=== PATIENT | male | born 1965 | race Caucasian/White ===

== ENCOUNTER 2024-12-23 08:11 | Outpatient (REF) | payer OTHER, SELFPAY ==
--- NOTE | 2024-12-23 08:24 | EEG_ITS ---
This is a 16-channel EEG with an EKG lead. The patient is reported awake during the tracing. Background EEG rhythm is mostly low amplitude fast with some lead and muscle artifacts. Photic stimulation does not produce any significant abnormality. Hyperventilation is unremarkable. No sharp wave spikes or paroxysmal tendency noted. Cardiac lead does not reveal any significant abnormality. IMPRESSION: Unremarkable EEG. MD REGGIE Sanchez/JULIAN / [id number]
--- OUTSIDE RECORDS SUMMARY | 2024-12-23 08:29 | XMS_ITS | Continuity of Care Document ---
Author Organization [facility] Address [address] [place] [address]- Care Team Providers Care Theology Teacher Name Role Phone Jaclyn SHERMAN, Nikko Alegria Primary Care Physician [place] [facility] Date(s): 11/26/24 - 12/03/24 [facility] Adult [address] [place] [address]- Encounter Diagnosis AMS (altered mental status)(Discharge Diagnosis) - 11/26/24 Hypertriglyceridemia(Discharge Diagnosis) - 11/26/24 Bradycardia(Discharge Diagnosis) - 11/26/24 Attending Physician: Not on Staff, Attending MD Encounter Type: Office Visit Allergies, Adverse Reactions, Alerts Substance Criticality Severity Reaction Reaction Severity Status Pollen Active Immunizations Given and Recorded Vaccine Date Status Refusal Reason tetanus/diphtheria/pertussis, acel(Tdap) 06/15/21 Recorded SARS-CoV-2 (COVID-19) Ad26 vaccine 05/30/21 Record ed Medications rosuvastatin 10 mg oral tablet 1 tablet = 10 mg, By Mouth, Daily, # 90 tablet, 1 Refills, Maintenance, 11/26/24 4:34:00 PM EST, Tablet, [id number], Partial fill upon patient request if the prescription is for a schedule II opioid drug., 175, cm, 11/26/24 12:53:00 EST, Height Start Date: 11/26/24 Status: Ordered Quantity: 90.0 Unit: tablet Repeat number: 2 sildenafil 100 mg oral tablet 1 tablet, By Mouth, Daily, 1 HOUR BEFORE SEXUAL ACTIVITY, # 30 tablet, 5 Refills, Maintenance, 05/26/24 9:01:00 PM EDT, [facility] 175, cm, 12/25/23 8:40:00 EDT, Height Start Date: 05/26/24 Status: Ordered Quantity: 30.0 Unit: tablet Repeat number: 6 Problem List Condition Confirmation Course Effective Dates Status Health Status Informant Erectile dysfunction Confirmed Active Family history of prostate cancer in father Confirmed Active Hx of tinea cruris Confirmed Active S/P right knee arthroscopy Confirmed Active History of colon polyps 1 Confirmed Active Hypertriglyceridemia Confirmed Active Lumbar radiculopathy, chronic Confirmed Active Obese class I Confirmed Active Biceps tendon rupture Confirmed Active 1Colonoscopy 2023 positive polyps, repeat 2028. Diagnosis Diagnosis Type Effective Dates Health Status Clinical Service Informant AMS (altered mental status) Discharge Diagnosis 11/26/24 Hypertriglyceridemia Discharge Diagnosis 11/26/24 Bradycardia Discharge Diagnosis 11/26/24 Vital Signs Most recent to oldest [Reference Range]: 1 2 Height 175 cm (11/29/24 3:12 PM) 175 cm (11/26/24 12:53 PM) Weight 92.0 kg (11/29/24 3:12 PM) 92.0 kg (11/26/24 12:53 PM) Oxygen Saturation [94-100 %] 98 % (11/26/24 12:53 PM) Pulse Rate [55-90 bpm] 53 bpm *L* (11/26/24 12:53 PM) Body Mass Index [18.5-24.99 kg/m2] 30.04 kg/m2 *>HHI* (11/26/24 12:53 PM) Blood Pressure [90-138/55-84 mm Hg] 118/ 72mm Hg (11/26/24 12:53 PM) Mode of Delivery (Oxygen) Room air (11/26/24 12:53 PM) Blood pressure sites Arm, right (11/26/24 12:53 PM) Temperature Route Oral (11/26/24 12:53 PM) Weight Obtained Via Standing scale (11/26/24 12:53 PM) Social History Social History Type Response Smoking Status Never (less than 100 in lifetime) entered on: 12/20/22 Sex Male Sex Representation Male (finding) Note * Anu Roque: PERFORM Event Display: Patient Education/Instruction Authored Date: [id number] Ambulatory Adult Visit Summary [facility] Adult [facility] [address] [id number] Name: SAIRA FRANCOIS : 1965?? Visit: 11/26/2024 12:47?? Ambulatory Visit Instructions ?? Your Care Team Primary Care Provider Nikko Anaya MD? This Visit Provider Devin PATTON , Miriam Arriaza Vitals Signs Pulse Rate:??53 bpm??Low Height: 175 cm Systolic Blood Pressure: 118 mm Hg Weight: 92 kg Diastolic Blood Pressure: 72 mm Hg Body Mass Index:??30.04 kg/m2??Critical Oxygen Saturation: 98 % Body surface area: 2.11 What to do next Scheduled Follow-Up Appointments Friday 8:30 AM EDT ?? With: Nikko Anaya MD Where: [facility] Juany Clark [facility] [address] [place] [address]- Status: Pending Follow-Up Appointments Follow Up with??Nikko Anaya MD Why: as scheduled Medications The list below reflects the information in our records and provided by you today along with any changes made during this visit. Please continue your medications until treatment is completed or stopped by your provider. If this is different from the information you have or there are other questions,please contact the prescribing provider. What How Much When Instructions Unchanged Rosuvastatin (rosuvastatin 10 mg oral tablet) 1 tab(s) Oral Daily Unchanged Sildenafil (sildenafil 100 mg oral tablet) 1 tab(s) Oral Daily 1 HOUR BEFORE SEXUAL ACTIVITY ?? Medications and Immunizations Administered Medications Given During Visit No medications given during this visit.?? Allergies (NKA means No Known Allergies) Pollen Common Emergency Awareness Tips IS IT A STROKE? Act FAST and Check for these signs: FACE Does the face look uneven? ARM Does one arm drift down? SPEECH Does their speech sound strange? TIME Call at any sign of stroke ?? Heart Attack Signs Chest discomfort: Most heart attacks involve discomfort in the center of the chest and lasts more than a few minutes, or goes away and comes back. It can feel like uncomfortable pressure, squeezing, fullness or pain. Discomfort in upper body: Symptoms can include pain or discomfort in one or both arms, back, neck, jaw or stomach. Shortness of breath: With or without discomfort. Other signs: Breaking out in a cold sweat, nausea, or lightheaded. Remember, MINUTES DO MATTER. If you experience any of these heart attack warning signs, call to get immediate medical attention! ?? Smoking can increase your chances of developing chronic health problems and can cause harmful effects to other family members in your house. If you smoke, you are strongly encouraged to quit. Please call [facility] [employer] [facility] at [phone] or [phone] ([phone]) or log in to [email or web address] for referrals to smoking cessation programs. ?? The National Suicide Prevention Hotline is available 28/04 if you or someone you know needs to find a reason to keep living. By calling 5-964-158-Conspire (5620) you'll be connected to a skilled, trained counselor at a crisis center in your area. [facility] [employer] [facility] You can view and manage your care through the patient portal or by using a health care kim of your choosing. [employer] is a website that allows you to securely view your medical information including your hospital discharge summary, office visit summaries, medications and follow-up visits. You can also request appointments, renew medications, and request access to your medical information using a health care kim of your choosing, or just ask a question. You can enroll at [email or web address] or register during your next office visit. [facility], in keeping with [facility] guidance, no longer requires face masks for staff, patientsor visitors in most situations. Similiar to time spent indoors at other locations, there is the chance that you were exposed to repiratory viruses during your time with us (such as flu or COVID-19). If you develop symptoms concerning for a viral respiratory infection, please seek testing (and treatment if indicated) from your medical provider or home test kit. ?? Disclaimer: The information provided is of a general nature and is intended to be used in conjunction with the recommendations and advice of your health care practitioner. Every effort has been made to ensure that the information provided is accurate and complete at the time it is provided to you however, as your needs change, or, as new information becomes available, different or additional instructions may be required. ?? If you have questions, please consult with your primary care provider or pharmacist, as appropriate. This information is not intended to serve as substitution for assessment and evaluation by a qualified health care provider. If you do not have a primary care provider, you may find a [facility] provider by calling [facility] at [phone]. Patient Care team information Care Team Personnel Name: Nikko Anaya MD Position: [facility] Physician - Primary Care Member Role: PCP Address: [address] [place] [id number] Telecom: Care Team Related Persons Name: ABELARDO FRANCOIS Name: CARINE FRANCOIS Insurance Providers Guarantor name: CORRINE Health Plan Information #: 1 Payer: [facility] Member Number: [id number] Policy Number: CORRINE Group Number: [id number] Health Plan Information #: 2 Payer: [facility] Member Number: [id number] Policy Number: CORRINE Group Number: [id number]
== END 2024-12-23 08:12 | disposition home or self-care (01) ==
LOC: HO.NEURO 08:11
PROVIDERS: Visit Provider Nurse Practitioner Adult Health
DX: G40.89 Other seizures (principal)
CPT/HCPCS: 95816

== ENCOUNTER → 2025-01-13 07:39 | Outpatient (REF) | payer OTHER, SELFPAY ==
--- OUTSIDE RECORDS SUMMARY | 2025-01-13 07:42 | XMS_ITS | Encounter Summary ---
Author Organization [facility] Address [address] [place] [address] Care Team Providers Care Internet Marketer Name Role Phone Unavailable Primary Care Provider Unavailabl e Encounter Details Date Type Department Care Team (Late st Contact Info) Description 01/13/2025 Lab [facility] Neurodiagnostic [address] [place] [address] Ottoniel Oreilly MD [address] [place] [address] [place] [address] Epilepsy, unspecified, not intractable, without status epilepticus (CMS/[facility] V24, CMS/[facility] V28) Social History Tobacco Use Types Packs/Day Years Used Date Smoking Tobacco: Never Assessed Sex and Gender Information Value Date Recorded Sex Assigned at Not on file Legal Sex Male 10:16 PM EST Gender Identity Not on file Sexual Orientation Not on file documented as of this encounter Plan of Treatment Not on file documented as of this encounter Visit Diagnoses Diagnosis Epilepsy, unspecified, not intractable, without status epilepticus (CMS/[facility] V24, CMS/[facility] V28) documented in this encounter Orders Neurology Count Last Ordered Date First Orde red Date CONTINUOUS EEG 1 01/12/2025 documented in this encounter
--- OUTSIDE RECORDS SUMMARY | 2025-01-13 07:42 | XMS_ITS | Clinical Summary ---
Author Organization [facility] Address [address] [place] [address] Care Team Providers Care Certified Lactation Counselor Name Role Phone Unavailable Primary Care Provider Unavailabl e Encounters Date Type Department Care Team Description 01/13/2025 [facility] Neurodiagnostic [address] [place] [id number] Ottoniel Oreilly MD Epilepsy, unspecified, not intractable, without status epilepticus (CMS/HCC V24, CMS/HCC V28) 01/12/2025 [facility] Neurodiagnostic [address] [place] [address] Ottoniel Oreilly MD Epilepsy, unspecified, not intractable, without status epilepticus (CMS/HCC V24, CMS/HCC V28) from Last 3 Months Social History Tobacco Use Types Packs/Day Years Used Date Smoking Tobacco: Never Assessed Sex and Gender Information Value Date Recorded Sex Assigned at Not on file Legal Sex Male 10:16 PM EST Gender Identity Not on file Sexual Orientation Not on file Plan of Treatment Health Maintenance Due Date Last Done Comments DTaP,Tdap,and Td Vaccines (1 - Tdap) 1984 Hepatitis B Vaccines (1 of 3 - 19+ 3-dose series) 1984 Pneumococcal Vaccine: 50+ Ye ars (1 of 1 - PCV) 2015 Zoster Vaccines (1 of 2) 2015 COVID-19 Vaccine ( - 2023-2 5 season) 2024 Cholesterol Screening (Lipid Panel) 01/12/2025 Depression Screening 01/12/2025 HIV Screening 01/12/2025 Hepatitis C Screening 01/12/2025 Social Influencers of Health Screening 01/12/2025 Influenza Vaccine (Season Ended) 2025 Colorectal Cancer Screening: Colonoscopy 01/01/2027 01/01/2017 RSV Immunization Adult Patie nts (1 - 1-dose 75+ series) 2040 HIB Vaccines Aged Out No longer eligi ble based on patient's age to complete this topic HPV Vaccines Aged Out No longer eligi ble based on patient's age to complete this topic Hepatitis A Vaccines Aged Out No long er eligible based on patient's age to complete this topic IPV Vaccines Aged Out No longer eligi ble based on patient's age to complete this topic MMR Vaccines Aged Out No longer eligi ble based on patient's age to complete this topic Meningococcal ACWY Vaccine Aged Out N o longer eligible based on patient's age to complete this topic Meningococcal B Vaccine Aged Out No l onger eligible based on patient's age to complete this topic Pneumococcal Vaccine: Pediat rics (0 to 5 Years) and At-Risk Patients (6 to 64 Years) Aged Out No longer eligi ble based on patient's age to complete this topic RSV Immunization Patients Un zoya 20 months Aged Out No longer eligible b ased on patient's age to complete this topic Varicella Vaccines Aged Out No longer eligible based on patient's age to complete this topic Procedures Procedure Name Priority Date/Time Associated Diagnosis Comments EXTERNAL COLONOSCOPY REPORT Routine 01/01/2017 11:41 AM EDT from Last 3 Months or Most Recently Relevant to Health Maintenance Results * External Colonoscopy Report (01/01/2017 11:41 AM EDT) Anatomical Region Laterality Modality Endoscopy us Historical Provider GI~PROCEDURE ORDERABLES F inal Result from Last 3 Months or Most Recently Relevant to Health Maintenance
--- OUTSIDE RECORDS SUMMARY | 2025-01-13 07:42 | XMS_ITS | Encounter Summary ---
Author Organization [facility] Address [address] [place] [address] Care Team Providers Care Journeyman Carpenter Name Role Phone Unavailable Primary Care Provider Unavailabl e Encounter Details Date Type Department Care Team (Late st Contact Info) Description 01/12/2025 Lab [facility] Neurodiagnostic [address] [place] [address] Ottoniel Oreilly MD [address] [place] [address] [place] [address] Epilepsy, unspecified, not intractable, without status epilepticus (CMS/[facility] V24, CMS/[facility] V28) Social History Tobacco Use Types Packs/Day [...] Epilepsy, unspecified, not intractable, without status epilepticus (CMS/[facility] V24, CMS/[facility] V28) documented in this encounter Orders Neurology Count Last Ordered Date First Orde red Date CONTINUOUS EEG 1 01/12/2025 documented in this encounter
== END ==
LOC: HO.CARD 07:39
PROVIDERS: Visit Provider Psychiatry & Neurology Neurology
DX: R40.4 Transient alteration of awareness (principal)
CPT/HCPCS: 93225